=== PATIENT | female | born 1990 | race Caucasian/White ===

== ENCOUNTER 2022-03-14 08:36 | Outpatient (CLI) | payer OTHER, SELFPAY ==
[2022-03-14 10:22] LABS: Chloride* 108 mmol/L (96-114); Potassium* 4.4 mmol/L (3.6-5.1); Sodium* 137 mmol/L (135-149)
[2022-03-14 10:24] LABS: Bilirubin Total* 0.4 mg/dL (0.1-1.5); Carbon Dioxide* 21 mmol/L (20-32); Creatinine* 0.5 mg/dL (0.5-1.5); Estimated Glomerular Filt Rate 127 ml/min
[2022-03-14 10:25] LABS: Alanine Aminotransferase* 44 U/L (4-35); Alkaline Phosphatase* 137 U/L (40-150); Aspartate Amino Transferase* 59 U/L (12-35); Blood Urea Nitrogen* 9 mg/dL (5-24); Calcium* 9.9 mg/dL (8.4-10.6); Glucose* 97 mg/dL (60-115); HDL Cholesterol* 78 mg/dL (>=50); Total Protein* 6.6 g/dL (6.0-8.3); Triglycerides* 166 mg/dL (40-149)
[2022-03-15 19:06] LABS: Cholesterol* 188 mg/dL (90-199); LDL Cholesterol Calculated 77 mg/dL (<100)
== END 2022-03-14 08:37 | disposition home or self-care (01) ==
PROVIDERS: PCP Internal Medicine; Visit Provider Internal Medicine
DX: I10 Essential (primary) hypertension (principal); Z13.6 Encounter for screening for cardiovascular disorders; Z13.29 Encounter for screening for other suspected endocrine disorder
CPT/HCPCS: 80053; 80061; 84443

== ENCOUNTER 2023-06-27 08:57 | Outpatient (CLI) | payer OTHER, SELFPAY | END 2023-06-27 08:58 | disposition home or self-care (01) | LOC: NFLDREF 07-05 12:24 | PROVIDERS: PCP Internal Medicine; Referring Provider Internal Medicine; Visit Provider Internal Medicine | DX: I10 Essential (primary) hypertension (principal); Z13.220 Encounter for screening for lipoid disorders | CPT/HCPCS: 80053; 80061 ==